=== PATIENT | male | born 1950 | race Caucasian/White ===

== ENCOUNTER 2017-03-12 05:33 | Day surgery (SDC) | payer MEDICARE, BC ==
[2017-03-12] MEDS ORDERED: Dextrose 5%-0.45% NaCl 1,000 ML IV SCH (06:00)
[2017-03-12] MEDS ORDERED: Sodium Chloride 0.9% 10 ML Syringe FLUSH PRN (06:00)
[2017-03-12 06:07] VITALS: BP 140/76
--- NOTE | 2017-03-12 07:15 | OR ---
{null, DATE: 03/12/2017 PROCEDURES: Flexible sigmoidoscopy, NBI, and multiple pinch biopsies. INSTRUMENT USED: CF-H180AL Olympus video colonoscope. PREMEDICATIONS: None. INDICATION: The patient with previous polypectomy, rectal sessile polyp removed, followup endoscopic evaluation is done for detection of any residual tissue and removal, endoscopic hemostasis therapy if needed. DESCRIPTION OF PROCEDURE: Initial rectal exam was unremarkable. Rigid anoscopy was normal. The colonoscope was passed with ease up to the area of distal transverse colon. No bleeding was noted from any of the visualized areas at the commencement of the examination. No stricture. No vascular ectasia. No large isolated ulcerations seen. No evidence of diffuse inflammatory bowel disease in the form of friability, contact bleeding, or ulcerations. Diffuse scattered diverticula were noted in the proximal rectal area. Prominent benign fold was noted, NBI views were taken, photographs were obtained, multiple pinch biopsies were obtained and sent for histopathology. No bleeding was noted from any of the visualized areas at the completion of examination. IMPRESSION: Diverticulosis. The patient tolerated the procedure well. [facility] /[id number] }
== END 2017-03-12 07:00 | disposition home or self-care (01) ==
LOC: DL.SDS 05:33
PROVIDERS: ATTEND Internal Medicine Gastroenterology
DX: K57.30 Diverticulosis of large intestine without perforation or abscess without bleeding (principal); Z86.010 Personal history of colon polyps; Z98.890 Other specified postprocedural states
CPT/HCPCS: 88305

== ENCOUNTER 2017-05-11 19:54 | Emergency (ER) | payer MEDICARE, BC ==
[2017-05-11 21:15] VITALS: BP 155/102
--- NOTE | 2017-05-11 21:52 | EDM.PDOC ---
ED HPI GENERAL MEDICAL PROBLEM - General Chief Complaint: Respiratory Problem Stated Complaint: HARD TO BREATH, FLUIDS Time Seen by Provider: 05/11/17 21:20 Source of Information: Reports: Patient History Limitations: Reports: No Limitations - History of Present Illness INITIAL COMMENTS - FREE TEXT/NARRATIVE: ED with complaint of increased swelling in legs over past week and noting getting harder to breath. No chest pain. Admits while caring for ill , lost 30 # and in past week since her he has gained 10#. ASdmits some likely due to better eating habits. Notes feeling anxious as would have told him what to do in this situation. Has suprapubic cath from complications of prostate Cancer. Normally wears guillermo hose - Related Data Allergies Allergy/AdvReac Type Severity Reaction Status Date / Time No Known Allergies Allergy Verified 03/12/17 06:00 Home Meds: Home Meds Warfarin [Coumadin] 1 tab PO ASDIRECTED 03/05/14 [History] Metoprolol Succinate [Toprol XL] 1 tab PO DAILY 10/29/14 [History] Acetaminophen [Tylenol] 2 tab PO ASDIRECTED 06/11/16 [History] Calcium Carbonate/Vitamin D3 [Calcium 600 + Vit D Tablet] 2 tab PO ASDIRECTED [History] Diltiazem HCl [Cartia Xt] 2 tab PO BID 06/11/16 [History] Latanoprost [Xalatan 0.005% Ophth Soln] 1 drop EYEBOTH DAILY 06/11/16 [History] Multivitamin [Multivitamins] 1 tab PO DAILY 06/11/16 [History] Phenazopyridine HCl [Pyridium] 1 tab PO TID PRN 06/11/16 [History] Sildenafil Citrate [Viagra] 100 mg PO ASDIRECTED PRN 06/11/16 [History] Timolol Maleate [Timoptic 0.5% Ophth Soln] 1 drop EYEBOTH BID 06/11/16 [History] Betamethasone/Propylene Glyc [Diprolene 0.05%] 1 applic TOP ASDIRECTED 03/11/17 [History] Furosemide [Furosemide] 2 tab PO DAILY 03/11/17 [History] Miconazole Nitrate [Miconazorb AF] 1 applic TOP ASDIRECTED 03/11/17 [History] Past Medical History HEENT History: Reports: Glaucoma Cardiovascular History: Reports: Afib Respiratory History: Reports: None, Sleep Apnea Gastrointestinal History: Reports: None Genitourinary History: Reports: Prostate Disorder, Renal Calculus, Other (See Below) Other Genitourinary History: BLADDER DIVERTICULUM. URETHRAL STRICTURE. CHRONIC RETENTION OF URINE. SUPRAPUBIC CATHETAR Musculoskeletal History: Reports: Arthritis, Other (See Below) Other Musculoskeletal History: DEGENERATIVE DISC DISEASE Neurological History: Reports: None Psychiatric History: Reports: None Endocrine/Metabolic History: Reports: Obesity/BMI 30+ Hematologic History: Reports: None Immunologic History: Reports: None, Other (See Below) Other Immunologic History: HX OF SCARLATINA Oncologic (Cancer) History: Reports: Prostate, Other (See Below) Other Oncologic History: SKIN CA Dermatologic History: Reports: None - Infectious Disease History Infectious Disease History: Reports: Chicken Pox, Measles, Mumps, Other (See Below) Other Infectious Disease History: SCARLETINA - Past Surgical History HEENT Surgical History: Reports: None Cardiovascular Surgical History: Reports: Other (See Below) Other Cardiovascular Surgeries/Procedures: ANGIOGRAM. ECHO. ELECTROCARDIOGRAM Respiratory Surgical History: Reports: None GI Surgical History: Reports: Appendectomy, Hernia Repair/Other Female Surgical History: Reports: Suprapubic Catheter Placement Male Surgical History: Reports: Prostatectomy, Other (See Below) Other Male Surgeries/Procedures: PROSTATE CA SURG WITH RADIATION. BLADDER NECK DILTATION. CHANGE OF BLADDER TUBE CMPLX. CYSTOSCOPY Musculoskeletal Surgical History: Reports: Joint Replacement, Other (See Below) Other Musculoskeletal Surgeries/Procedures:: L) KNEE SURG Social & Family History - Family History Family Medical History: Noncontributory - Tobacco Use Smoking Status *Q: Never Smoker Years of Tobacco use: 20 Second Hand Smoke Exposure: No - Caffeine Use Caffeine Use: Reports: Coffee Other Caffeine Use: 2 cups every other day. pop weekly - Alcohol Use Days Per Week of Alcohol Use: 0 - Recreational Drug Use Recreational Drug Use: No - Living Situation & Occupation Living situation: Reports: Occupation: Employed ED ROS GENERAL - Review of Systems Review Of Systems: See Below Constitutional: Reports: Weight Gain. Denies: Fever, Chills, Malaise HEENT: Reports: No Symptoms Respiratory: Reports: Shortness of Breath. Denies: Cough Cardiovascular: Reports: Edema. Denies: Chest Pain, Orthopnea Endocrine: Reports: No Symptoms GI/Abdominal: Reports: No Symptoms : Reports: No Symptoms Musculoskeletal: Reports: No Symptoms Skin: Reports: No Symptoms Neurological: Reports: No Symptoms Psychiatric: Reports: No Symptoms ED EXAM, GENERAL - Physical Exam Exam: See Below Exam Limited By: No Limitations General Appearance: Alert, Anxious, Mild Distress Ears: Normal External Exam, Normal TMs Nose: Normal Inspection Throat/Mouth: Normal Inspection Head: Atraumatic, Normocephalic Neck: Normal Inspection, Supple Respiratory/Chest: No Respiratory Distress, Lungs Clear Cardiovascular: Normal Peripheral Pulses, Irregularly Irregular GI/Abdominal: Normal Bowel Sounds Back Exam: Normal Inspection Extremities: Pedal Edema (2+to knees) Neurological: Alert, Oriented, Normal Cognition Psychiatric: Normal Affect, Normal Mood, Anxious (mild) Skin Exam: Warm, Dry, Intact, Normal Color Course - Vital Signs Last Recorded V/S: Last Vital Signs Temp 97.7 F 05/11/17 21:14 Pulse 84 05/11/17 21:14 Resp 20 05/11/17 21:14 BP 155/102 H 05/11/17 21:14 Pulse Ox 97 05/11/17 21:14 - Orders/Labs/Meds Labs: Laboratory Tests 05/11/17 05/11/17 05/11/17 Range/Units 21:33 21:33 21:33 WBC 9.2 (5.0-10.0) 10^3/uL RBC 5.22 (4.6-6.2) 10^6/uL Hgb 15.1 (14.0-18.0) g/dL Hct 46.8 (40.0-54.0) % MCV 89.7 (80-100) fL MCH 28.9 (27.0-34.0) pg MCHC 32.3 L (33.0-35.0) g/dL Plt Count 176 (150-450) 10^3/uL Neut % (Auto) 85.8 H (42.2-75.2) % Lymph % (Auto) 6.0 L (20.5-50.1) % [place] % (Auto) 6.2 (2-8) % Eos % (Auto) 1.8 (1.0-3.0) % Baso % (Auto) 0.2 (0.0-1.0) % Sodium 142 (135-145) mmol/L Potassium 3.9 (3.6-5.0) mmol/L Chloride 104 (101-111) mmol/L Carbon Dioxide 28.0 (21.0-31.0) mmol/L Anion Gap 13.9 BUN 22 H (7-18) mg/dL Creatinine 1.1 (0.6-1.3) mg/dL Est Cr Clr Drug Dosing 72.64 mL/min Estimated GFR (MDRD) > 60 BUN/Creatinine Ratio 20.00 Glucose 114 H (74-105) mg/dL Calcium 8.7 (8.4-10.2) mg/dl Total Bilirubin 1.0 (0.2-1.0) mg/dL AST 25 (10-42) IU/L ALT 24 (10-60) IU/L Alkaline Phosphatase 64 (42-121) IU/L CK-MB (CK-2) 1.10 (0.4-4.7) ng/mL Troponin I < 0.02 (0.00-0.02) ng/ml B-Natriuretic Peptide 124 H (0-100) pg/ml Total Protein 7.0 (6.7-8.2) g/dl Albumin 3.6 (3.2-5.5) g/dl Globulin 3.4 Albumin/Globulin Ratio 1.06 - Radiology Interpretation Free Text/Narrative:: CXR: cardiac silhouette, upper limits of normal size.Mild lower lobe atelectasis Departure - Departure Time of Disposition: 23:07 Disposition: Home, Self-Care 01 Condition: Fair Clinical Impression: Lower extremity edema - Discharge Information Instructions: Shortness of Breath, [id number] Forms: ED Department Discharge Additional Instructions: additioanl 20mg Lasix tonight elevate lower extremities Guillermo Manriquez Follow up PCP 1-2 days Limit sodium intake
[2017-05-11 22:07] LABS: CHLORIDE,CL 104 mmol/L (101-111); SODIUM,NA 142 mmol/L (135-145)
--- NOTE | 2017-05-12 19:24 | EKG ---
05/11/2017 - CARLOS PRICE - Cristin reviewed the EKG and agree with the machine's reading. [facility] /[id number]
== END 2017-05-11 23:23 | disposition home or self-care (01) ==
LOC: DL.ED 19:54
DX: R60.0 Localized edema (principal); I48.91 Unspecified atrial fibrillation; E66.9 Obesity, unspecified; Z98.890 Other specified postprocedural states; Z79.899 Other long term (current) drug therapy; M19.90 Unspecified osteoarthritis, unspecified site; Z85.828 Personal history of other malignant neoplasm of skin; Z85.46 Personal history of malignant neoplasm of prostate; Z90.49 Acquired absence of other specified parts of digestive tract; Z87.442 Personal history of urinary calculi; R06.02 Shortness of breath
CPT/HCPCS: 36415; 71010; 80053; 82553; 83880; 84484; 85025; 99285

== ENCOUNTER 2019-01-28 07:15 | Emergency (ER) | payer MEDICARE, BC ==
--- NOTE | 2019-01-28 07:40 | EDM.PDOC ---
ED HPI GENERAL MEDICAL PROBLEM - General Chief Complaint: General Stated Complaint: TOE IN PAIN,HYDRATED? [id number] Time Seen by Provider: 01/28/19 07:40 Source of Information: Reports: Patient, RN, RN Notes Reviewed History Limitations: Reports: No Limitations - History of Present Illness INITIAL COMMENTS - FREE TEXT/NARRATIVE: Pt to ER with c/o additional swelling in the lower legs, SOB, and severe pain in the right great toe. He states the pain began to get worse during the night. He states he stubbed the toe about 1 month ago, but has not had any pain until now. Patient states he takes Lasix in the morning and in the evening. He states he has had less urine output and more swelling in the lower extremities. Patient has a suprapubic catheter due to prostate cancer/surgery. Pt admits to hx of atrial fibrillation. Denies chest pains. Onset: Gradual Duration: Constant, Getting Worse Location: Reports: Lower Extremity, Left, Lower Extremity, Right Severity: Moderate - Related Data Allergies Allergy/AdvReac Type Severity Reaction Status Date / Time No Known Allergies Allergy Verified 01/28/19 07:24 Home Meds: Home Meds Warfarin [Coumadin] 5 mg PO DAILY 03/05/14 [History] Metoprolol Succinate [Toprol XL] 100 mg PO BEDTIME 10/29/14 [History] Acetaminophen [Tylenol] 2 tab PO ASDIRECTED 06/11/16 [History] Calcium Carbonate/Vitamin D3 [Calcium 600 + Vit D Tablet] 2 tab PO ASDIRECTED [History] Diltiazem HCl [Cartia Xt] 360 mg PO BEDTIME 06/11/16 [History] Latanoprost [Xalatan 0.005% Ophth Soln] 1 drop EYEBOTH DAILY 06/11/16 [History] Multivitamin [Multivitamins] 1 tab PO DAILY 06/11/16 [History] Phenazopyridine HCl [Pyridium] 1 tab PO TID PRN 06/11/16 [History] Timolol Maleate [Timoptic 0.5% Ophth Soln] 1 drop EYEBOTH BID 06/11/16 [History] Betamethasone/Propylene Glyc [Diprolene 0.05%] 1 applic TOP ASDIRECTED 03/11/17 [History] Furosemide 1 tab PO ASDIRECTED 03/11/17 [History] Miconazole Nitrate [Miconazorb AF] 1 applic TOP ASDIRECTED PRN 03/11/17 [History ] Docusate Sodium 100 mg PO DAILY 11/22/18 [History] Oxybutynin Chloride [Ditropan Xl] 15 mg PO BID 11/22/18 [History] Past Medical History HEENT History: Reports: Glaucoma Cardiovascular History: Reports: Afib, Hypertension Respiratory History: Reports: Sleep Apnea Gastrointestinal History: Reports: Colon Polyp Genitourinary History: Reports: Prostate Disorder, Renal Calculus, Other (See Below) Other Genitourinary History: BLADDER DIVERTICULUM. URETHRAL STRICTURE. CHRONIC RETENTION OF URINE. SUPRAPUBIC CATHETAR Musculoskeletal History: Reports: Arthritis, Other (See Below) Other Musculoskeletal History: DEGENERATIVE DISC DISEASE Neurological History: Reports: None Psychiatric History: Reports: None Endocrine/Metabolic History: Reports: Obesity/BMI 30+ Hematologic History: Reports: None Immunologic History: Reports: Other (See Below) Other Immunologic History: HX OF SCARLATINA Oncologic (Cancer) History: Reports: Prostate, Other (See Below) Other Oncologic History: SKIN CA Dermatologic History: Reports: None - Infectious Disease History Infectious Disease History: Reports: Chicken Pox, Measles, Mumps, Other (See Below) Other Infectious Disease History: SCARLETINA - Past Surgical History Female Surgical History: Social & Family History - Family History Family Medical History: Noncontributory - Caffeine Use Caffeine Use: Reports: Coffee, Soda Other Caffeine Use: 3 cups every other day. pop weekly - Living Situation & Occupation Living situation: Reports: Occupation: Employed ED ROS GENERAL - Review of Systems Review Of Systems: ROS reveals no pertinent complaints other than HPI. ED EXAM, GENERAL - Physical Exam Exam: See Below Exam Limited By: No Limitations General Appearance: Alert, WD/WN, No Apparent Distress Eye Exam: Bilateral Eye: EOMI, Normal Inspection Ears: Normal External Exam, Hearing Grossly Normal Nose: Normal Inspection Throat/Mouth: Normal Inspection, Normal Voice, No Airway Compromise Head: Atraumatic, Normocephalic Neck: Normal Inspection, Supple, Non-Tender, Full Range of Motion Respiratory/Chest: No Respiratory Distress, No Accessory Muscle Use, Chest Non- Tender, Decreased Breath Sounds, Rales Cardiovascular: Normal Peripheral Pulses, Irregularly Irregular Peripheral Pulses: 1+: Dorsalis Pedis (L), Dorsalis Pedis (R), 2+: Radial (L), Radial (R) GI/Abdominal: Normal Bowel Sounds, Soft, Non-Tender, Distended (Male) Exam: Deferred Rectal (Males) Exam: Deferred Back Exam: Normal Inspection, Decreased Range of Motion Extremities: Pedal Edema, Limited Range of Motion (right great toe) Neurological: Alert, Oriented, CN II-XII Intact, Normal Cognition Psychiatric: Normal Affect, Normal Mood Skin Exam: Warm, Dry, Intact, Normal Color, No Rash Lymphatic: No Adenopathy Course - Vital Signs Last Recorded V/S: Last Vital Signs Temp 97.3 F 01/28/19 07:21 Pulse 73 01/28/19 07:21 Resp 20 01/28/19 07:21 BP 104/63 01/28/19 07:21 Pulse Ox 97 01/28/19 07:21 - Orders/Labs/Meds Orders: Active Orders 24 hr Category Date Time Status Furosemide [Lasix] Med 01/28/19 08:52 Once 80 mg IM NOW ONE Labs: Laboratory Tests 01/28/19 01/28/19 01/28/19 Range/Units 08:00 08:00 08:00 WBC 8.2 (5.0-10.0) 10^3/uL RBC 5.41 (4.6-6.2) 10^6/uL Hgb 15.3 (14.0-18.0) g/dL Hct 46.9 (40.0-54.0) % MCV 86.7 D (80-100) fL MCH 28.3 (27.0-34.0) pg MCHC 32.6 L (33.0-35.0) g/dL Plt Count 186 (150-450) 10^3/uL Neut % (Auto) 76.6 H (42.2-75.2) % Lymph % (Auto) 13.7 L (20.5-50.1) % Real % (Auto) 7.6 (2-8) % Eos % (Auto) 1.7 (1.0-3.0) % Baso % (Auto) 0.4 (0.0-1.0) % PT 20.5 H (9.0-12.0) SEC INR 2.1 H (0.9-1.2) Sodium 138 (135-145) mmol/L Potassium 3.8 (3.6-5.0) mmol/L Chloride 105 (101-111) mmol/L Carbon Dioxide 24.0 (21.0-31.0) mmol/L Anion Gap 12.8 BUN 21 H (7-18) mg/dL Creatinine 1.1 (0.6-1.3) mg/dL Est Cr Clr Drug Dosing 69.57 mL/min Estimated GFR (MDRD) > 60 BUN/Creatinine Ratio 19.09 Glucose 118 H (74-105) mg/dL Uric Acid 9.6 H (2.6-7.2) mg/dL Calcium 8.6 (8.4-10.2) mg/dl Total Bilirubin 0.9 (0.2-1.0) mg/dL AST 29 (10-42) IU/L ALT 23 (10-60) IU/L Alkaline Phosphatase 70 (42-121) IU/L B-Natriuretic Peptide 95 (0-100) pg/ml Total Protein 7.2 (6.7-8.2) g/dl Albumin 3.4 (3.2-5.5) g/dl Globulin 3.8 Albumin/Globulin Ratio 0.89 Meds: Medications Discontinued Medications Generic Name Dose Route Start Last Admin Trade Name Freq PRN Reason Stop Dose Admin Furosemide 80 mg 01/28/19 08:45 Lasix IVPUSH 01/28/19 08:46 NOW ONE - Radiology Interpretation Free Text/Narrative:: Chest xray: FINDINGS: Lungs: Unremarkable. No consolidation. Pleural space: Unremarkable. No pleural effusion. No pneumothorax. Heart/Mediastinum: Unremarkable. No cardiomegaly. Bones/joints: Unremarkable. IMPRESSION: No acute findings. Thank you for allowing us to participate in the care of your patient. Dictated and Authenticated by: Alvarado Victoria MD 01/28/2019 8:34 AM Central Time ([place] & [place]) Right great toe xray: FINDINGS: Bones/joints: Normal. Soft tissues: Normal. IMPRESSION: No acute findings. Thank you for allowing us to participate in the care of your patient. Dictated and Authenticated by: Alvarado Victoria MD 01/28/2019 8:34 AM Central Time ([place] & [place]) See rad report Departure - Departure Time of Disposition: 08:53 Disposition: Home, Self-Care 01 Condition: Fair Clinical Impression: Lower extremity edema Gout Qualifiers: Gout site: toe Gout etiology: unspecified cause Chronicity: acute Laterality: right Qualified Code(s): M10.9 - Gout, unspecified - Discharge Information *PRESCRIPTION DRUG MONITORING PROGRAM REVIEWED*: No *COPY OF PRESCRIPTION DRUG MONITORING REPORT IN PATIENT SERGEI: No Instructions: Gout, [id number], Edema, [id number] Forms: ED Department Discharge Additional Instructions: RX: Colchicine, Prednisone Drink plenty of water Follow up with your primary care facility - My Orders Last 24 Hours: My Active Orders 01/28/19 08:52 Furosemide [Lasix] 80 mg IM NOW ONE - Assessment/Plan Last 24 Hours: My Active Orders 01/28/19 08:52 Furosemide [Lasix] 80 mg IM NOW ONE
[2019-01-28 07:49] VITALS: BP 104/63
[2019-01-28 08:29] LABS: ANION GAP 12.8; CHLORIDE,CL 105 mmol/L (101-111); SODIUM,NA 138 mmol/L (135-145)
[2019-01-28] MEDS ORDERED: Furosemide 40 MG/4 ML VIAL IVPUSH ONE (08:45)
[2019-01-28] MEDS ORDERED: Furosemide 40 MG/4 ML VIAL IM ONE (08:52)
== END 2019-01-28 09:21 | disposition home or self-care (01) ==
LOC: DL.ED 07:15
DX: M10.9 Gout, unspecified (principal); I10 Essential (primary) hypertension; I48.91 Unspecified atrial fibrillation; Z79.899 Other long term (current) drug therapy; Z79.01 Long term (current) use of anticoagulants
CPT/HCPCS: 36415; 71046; 73660; 80053; 83880; 84550; 85025; 85610; 96372; 99283; J1940

== ENCOUNTER 2019-11-23 05:20 | Day surgery (SDC) | payer MEDICARE, BC ==
[2019-11-23] MEDS ORDERED: fentaNYL 100 MCG/2 ML SDV IV ONE ×3 (05:21→06:31)
[2019-11-23] MEDS ORDERED: Midazolam 1 MG/ML 2 ML SDV IV ONE ×5 (05:21→06:35)
[2019-11-23] MEDS ORDERED: Dextrose 5%-0.45% NaCl 1,000 ML IV SCH (06:00)
[2019-11-23] MEDS ORDERED: Sodium Chloride 0.9% 10 ML Syringe FLUSH PRN (06:00)
[2019-11-23] MEDS ORDERED: Midazolam 1 MG/ML 2 ML SDV ONE (06:15)
[2019-11-23] MEDS ORDERED: fentaNYL 100 MCG/2 ML SDV ONE (06:16)
[2019-11-23 08:55] VITALS: BP 113/77; PULSE 80
--- NOTE | 2019-11-23 09:21 | OR ---
DATE: 11/23/2019 PROCEDURES: Total colonoscopy, narrow-band imaging, and cold snare polypectomy. INSTRUMENT USED: CF-QL302T Olympus video colonoscope. PREMEDICATIONS: Fentanyl 100 mcg intravenous, Versed 3 mg intravenous, nasal O2 cannula. Procedure was done under pulse oximetry, BP recording, and quality assurance monitor body. INDICATION: The patient with previous colonic polyp removal. Followup colonoscopic examination is done for detection of any polypoid lesions, any residual polyp tissue if detected to be removed, endoscopic hemostasis therapy if needed. DESCRIPTION OF PROCEDURE: Initial rectal exam was unremarkable. Rigid anoscopy showed small internal hemorrhoids without bleeding from them. The colonoscope was passed with ease up to the ileocecal area. Photographs were taken of the normal-appearing cecum identified by landmarks of appendiceal orifice and double bulged ileocecal folds. No bleeding was noted from any of the visualized areas at the commencement of the examination. The bowel preparation was found to be adequate, [place] score 2 in right and transverse colon, 3 in descending colon, total score 7. No stricture. No vascular ectasia. No large isolated ulcerations seen. No evidence of diffuse inflammatory bowel disease in the form of friability, contact bleeding, or ulcerations. Probing the proximal sides of folds and flexures using adequate distention and clearing up the stool material, withdrawal of the scope was made. In the hepatic flexure area, diminutive benign-appearing polyp was noted, NBI views were obtained, photographs were taken, cold snare polypectomy was done, the tissue was retrieved and sent for histopathology. No bleeding was noted from any of the visualized areas at the completion of examination. IMPRESSION: 1. Internal hemorrhoids. 2. Colonic polyp. The patient tolerated the procedure well. [facility] /[id number]
== END 2019-11-23 09:00 | disposition home or self-care (01) ==
LOC: DL.ENDO 05:20
PROVIDERS: ATTEND Internal Medicine Gastroenterology
DX: Z12.11 Encounter for screening for malignant neoplasm of colon (principal); D12.3 Benign neoplasm of transverse colon; K64.8 Other hemorrhoids; Z86.010 Personal history of colon polyps
CPT/HCPCS: 45385; J2250; J3010; J7042; 88305

== ENCOUNTER 2020-06-18 21:20 | Inpatient (IN) | payer MEDICARE, BC, OTHER ==
--- NOTE | 2020-06-18 21:43 | EDM.PDOC ---
ED HPI GENERAL MEDICAL PROBLEM - General Chief Complaint: Respiratory Problem Stated Complaint: CHESTPAIN,RIGHTSIDE,SOB,RESPATORYISSUES,[id number] Time Seen by Provider: 06/18/20 21:43 Source of Information: Reports: Patient, RN, RN Notes Reviewed History Limitations: Reports: No Limitations - History of Present Illness INITIAL COMMENTS - FREE TEXT/NARRATIVE: Patient presents to ER with complaint of shortness of breath, right-sided chest pain. Patient states he began feeling somewhat short of breath yesterday, the chest pain to the right side of the chest has been been gradually getting worse. Patient states today he has had a couple of loose stools but also takes stool softeners, and states he has felt somewhat nauseated. Patient states he feels winded and as if he needs oxygen. Patient admits to history of atrial fib, on anticoagulation. Admits to history of prostate cancer. Admits to chills, unsure if he has had a fever. Onset: Gradual - Related Data Allergies Allergy/AdvReac Type Severity Reaction Status Date / Time No Known Allergies Allergy Verified 06/18/20 21:51 Home Meds: Home Meds Metoprolol Succinate [Toprol XL] 100 mg PO BEDTIME 10/29/14 [History] Acetaminophen [Tylenol] 650 mg PO ASDIRECTED PRN 06/11/16 [History] Calcium Carbonate/Vitamin D3 [Calcium 600 + Vit D Tablet] 2 tab PO ASDIRECTED 06/11/16 [History] Latanoprost [Xalatan 0.005% Ophth Soln] 1 drop EYEBOTH DAILY 06/11/16 [History] Multivitamin [Multivitamins] 1 tab PO DAILY 06/11/16 [History] Timolol Maleate [Timoptic 0.5% Ophth Soln] 1 drop EYEBOTH BID 06/11/16 [History] dilTIAZem HCL [Cartia Xt] 360 mg PO DAILY 06/11/16 [History] Betamethasone/Propylene Glyc [Diprolene 0.05%] 1 applic TOP ASDIRECTED 03/11/17 [History] Furosemide 40 mg PO BID 03/11/17 [History] Miconazole Nitrate [Miconazorb AF] 1 applic TOP BID PRN 03/11/17 [History] Docusate Sodium 100 mg PO DAILY 11/22/18 [History] Cyclobenzaprine [Flexeril] 5 mg PO Q8HR PRN 10/31/19 [History] Hydrocodone/Acetaminophen [[place] 5-325 Tablet] 5 - 325 mg PO Q8H PRN 10/31/19 [History] Sertraline [Zoloft] 50 mg PO DAILY 10/31/19 [History] Warfarin Sodium [Jantoven] 5 mg PO ASDIRECTED 10/31/19 [History] allopurinoL [Zyloprim] 300 mg PO DAILY 10/31/19 [History] polyethylene glycoL 3350 [MiraLAX] 1 packet PO ASDIRECTED PRN 10/31/19 [History] Past Medical History HEENT History: Reports: Glaucoma Other HEENT History: cyst roof of mouth Cardiovascular History: Reports: Afib, Hypertension Respiratory History: Reports: Sleep Apnea Gastrointestinal History: Reports: Colon Polyp Genitourinary History: Reports: Prostate Disorder, Renal Calculus, Other (See Below) Other Genitourinary History: BLADDER DIVERTICULUM. URETHRAL STRICTURE. CHRONIC RETENTION OF URINE. SUPRAPUBIC CATHETAR. BLADDER SPASMS Musculoskeletal History: Reports: Arthritis, Other (See Below) Other Musculoskeletal History: DEGENERATIVE DISC DISEASE. BLADDER SPASMS Neurological History: Reports: None Psychiatric History: Reports: None Endocrine/Metabolic History: Reports: Obesity/BMI 30+ Hematologic History: Reports: None Immunologic History: Reports: Other (See Below) Other Immunologic History: HX OF SCAR[place]ATINA Oncologic (Cancer) History: Reports: Prostate, Other (See Below) Other Oncologic History: SKIN CA Dermatologic History: Reports: None - Infectious Disease History Infectious Disease History: Reports: Chicken Pox, Measles, Mumps, Other (See Below) Other Infectious Disease History: SCARLETINA - Past Surgical History Head Surgeries/Procedures: Reports: None HEENT Surgical History: Reports: Eye Surgery Other HEENT Surgeries/Procedures: surg opn torn retina Cardiovascular Surgical History: Reports: Other (See Below) Other Cardiovascular Surgeries/Procedures: ANGIOGRAM. ECHO. ELECTROCARDIOGRAM Respiratory Surgical History: Reports: None GI Surgical History: Reports: Appendectomy, Colonoscopy, Hernia Repair/Other, Polypectomy Male Surgical History: Reports: Suprapubic Catheter Placement Other Male Surgeries/Procedures: PROSTATE CA SURG WITH RADIATION. BLADDER NECK DILTATION. CHANGE OF BLADDER TUBE CMPLX. CYSTOSCOPY Endocrine Surgical History: Reports: None Neurological Surgical History: Reports: None Musculoskeletal Surgical History: Reports: Joint Replacement, Other (See Below) Other Musculoskeletal Surgeries/Procedures:: L) KNEE SURG Oncologic Surgical History: Reports: Other (See Below) Other Oncologic Surgeries/Procedures: S/P PROSTRATE CA SURGERY & RADIATION Dermatological Surgical History: Reports: Skin Biopsy Social & Family History - Family History Family Medical History: Noncontributory - Caffeine Use Caffeine Use: Reports: Coffee, Soda Other Caffeine Use: 3 cups every other day. pop weekly - Living Situation & Occupation Living situation: Reports: Occupation: Employed ED ROS GENERAL - Review of Systems Review Of Systems: Comprehensive ROS is negative, except as noted in HPI. ED EXAM, GENERAL - Physical Exam Exam: See Below Exam Limited By: No Limitations General Appearance: Alert, WD/WN, Mild Distress Eye Exam: Bilateral Eye: EOMI, Normal Inspection Ears: Normal External Exam, Hearing Grossly Normal Nose: Normal Inspection Throat/Mouth: Normal Inspection, Normal Voice, No Airway Compromise Head: Atraumatic, Normocephalic Neck: Normal Inspection, Supple, Non-Tender, Full Range of Motion Respiratory/Chest: Decreased Breath Sounds, Crackles (bases) Cardiovascular: Normal Peripheral Pulses, No Gallop, No JVD, No Murmur, No Rub, Irregularly Irregular Peripheral Pulses: 2+: Radial (L), Radial (R) GI/Abdominal: Normal Bowel Sounds, Soft, Non-Tender (Male) Exam: Deferred Rectal (Males) Exam: Deferred Back Exam: Normal Inspection, Full Range of Motion, NT Extremities: Limited Range of Motion (uses cane, wheelchair) Neurological: Alert, Oriented, CN II-XII Intact, Normal Cognition, Normal Reflexes, No Motor/Sensory Deficits Psychiatric: Normal Affect, Normal Mood Skin Exam: Warm, Dry, Intact, Normal Color, No Rash Lymphatic: No Adenopathy Course - Vital Signs Last Recorded V/S: Last Vital Signs Temp 97.4 F 06/18/20 21:41 Pulse 109 H 06/18/20 21:41 Resp 22 H 06/18/20 21:41 BP 109/82 06/18/20 21:41 Pulse Ox 96 06/18/20 21:41 - Orders/Labs/Meds Orders: Active Orders 24 hr Category Date Time Status Admission Diagnosis [ADT] Stat ADT 06/18/20 22:37 Ordered Patient Status [ADT] Routine ADT 06/18/20 22:37 Active EKG Documentation Completion [RC] STAT Care 06/18/20 21:25 Active CULTURE BLOOD [BC] Stat Lab 06/18/20 21:25 Ordered CULTURE BLOOD [BC] Stat Lab 06/18/20 21:35 Received UA RFX NANCY AND CULT IF INDIC [URIN] Stat Lab 06/18/20 21:24 Ordered cefTRIAXone [Rocephin] 1 gm Med 06/18/20 22:38 Active Sodium Chloride 0.9% [Normal Saline] 50 ml IV ONETIME Blood Culture x2 Reflex Set [OM.PC] Stat Oth 06/18/20 21:25 Ordered Medication Orders Ceftriaxone Sodium 1 gm/ (Sodium Chloride) 50 mls @ 100 mls/hr IV ONETIME ONE Stop: 06/18/20 23:07 Labs: Laboratory Tests 06/18/20 06/18/20 06/18/20 Range/Units 21:35 21:35 21:35 WBC 18.6 H (5.0-10.0) 10^3/uL RBC 5.84 (4.6-6.2) 10^6/uL Hgb 16.6 D (14.0-18.0) g/dL Hct 50.9 (40.0-54.0) % MCV 87.2 (80-100) fL MCH 28.4 (27.0-34.0) pg MCHC 32.6 L (33.0-35.0) g/dL Plt Count 186 (150-450) 10^3/uL Neut % (Auto) 89.6 H (42.2-75.2) % Lymph % (Auto) 4.9 L (20.5-50.1) % [place] % (Auto) 5.2 (2-8) % Eos % (Auto) 0.1 L (1.0-3.0) % Baso % (Auto) 0.2 (0.0-1.0) % D-Dimer, Quantitative 121 (0-400) ng/mL Sodium 139 (136-145) mmol/L Potassium 4.2 (3.5-5.1) mmol/L Chloride 100 (98-107) mmol/L Carbon Dioxide 31 (21-32) mmol/L Anion Gap 12.2 (7-13) mEq/L BUN 18 (7-18) mg/dL Creatinine 1.36 H (0.70-1.30) mg/dL Est Cr Clr Drug Dosing 56.30 mL/min Estimated GFR (MDRD) 52 BUN/Creatinine Ratio 13.2 (No establ ref range) Glucose 123 H (74-99) mg/dL Lactic Acid (0.4-2.0) mmol/L Calcium 8.9 (8.5-10.1) mg/dL Total Bilirubin 1.0 (0.2-1.0) mg/dL AST 20 (15-37) U/L ALT 26 (16-63) U/L Alkaline Phosphatase 100 (46-116) U/L Troponin I < 0.017 (0.000-0.056) ng/mL C-Reactive Protein 5.1 H (0.0-0.9) mg/dL B-Natriuretic Peptide 99 (0-100) pg/ml Total Protein 8.5 H (6.4-8.2) g/dL Albumin 3.6 (3.4-5.0) g/dL Globulin 4.9 Albumin/Globulin Ratio 0.7 COVID-19 ([place]) (NEGATIVE) 06/18/20 06/18/20 Range/Units 21:35 21:38 WBC (5.0-10.0) 10^3/uL RBC (4.6-6.2) 10^6/uL Hgb (14.0-18.0) g/dL Hct (40.0-54.0) % MCV (80-100) fL MCH (27.0-34.0) pg MCHC (33.0-35.0) g/dL Plt Count (150-450) 10^3/uL Neut % (Auto) (42.2-75.2) % Lymph % (Auto) (20.5-50.1) % [place] % (Auto) (2-8) % Eos % (Auto) (1.0-3.0) % Baso % (Auto) (0.0-1.0) % D-Dimer, Quantitative (0-400) ng/mL Sodium (136-145) mmol/L Potassium (3.5-5.1) mmol/L Chloride (98-107) mmol/L Carbon Dioxide (21-32) mmol/L Anion Gap (7-13) mEq/L BUN (7-18) mg/dL Creatinine (0.70-1.30) mg/dL Est Cr Clr Drug Dosing mL/min Estimated GFR (MDRD) BUN/Creatinine Ratio (No establ ref range) Glucose (74-99) mg/dL Lactic Acid 1.8 (0.4-2.0) mmol/L Calcium (8.5-10.1) mg/dL Total Bilirubin (0.2-1.0) mg/dL AST (15-37) U/L ALT (16-63) U/L Alkaline Phosphatase (46-116) U/L Troponin I (0.000-0.056) ng/mL C-Reactive Protein (0.0-0.9) mg/dL B-Natriuretic Peptide (0-100) pg/ml Total Protein (6.4-8.2) g/dL Albumin (3.4-5.0) g/dL Globulin Albumin/Globulin Ratio COVID-19 ([place]) Negative (NEGATIVE) Meds: Medications Generic Name Dose Route Start Last Admin Trade Name Freq PRN Reason Stop Dose Admin Ceftriaxone Sodium 1 gm/ 50 mls @ 100 mls/hr 06/18/20 22:38 Sodium Chloride IV 06/18/20 23:07 ONETIME ONE - Radiology Interpretation Free Text/Narrative:: Chest xray: PROCEDURE INFORMATION: Exam: XR Chest, 1 View Exam date and time: 06/18/2020 10:12 PM Age: 70 years old Clinical indication: Right-sided chest pain TECHNIQUE: Imaging protocol: XR of the chest Views: 1 view. COMPARISON: CR Chest 2V 01/28/2019 8:06 AM FINDINGS: Lungs: There is now mild vascular congestion Pleural space: Unremarkable. No pleural effusion. No pneumothorax. Heart/Mediastinum: There is cardiomegaly Bones/joints: Unremarkable. IMPRESSION: Cardiomegaly with mild vascular congestion Thank you for allowing us to participate in the care of your patient. Dictated and Authenticated by: James Dickens MD 06/18/2020 10:26 PM Central Time ([place] & [place]) See rad report - Re-Assessments/Exams Free Text/Narrative Re-Assessment/Exam: 06/18/20 22:51 Dr. Bradley here to the ER to evaluate the patient. He agreed to accept the patient for inpatient admission. Departure - Departure Time of Disposition: 22:52 Disposition: Admitted As Inpatient 65 Condition: Fair Clinical Impression: Pneumonia Qualifiers: Pneumonia type: due to unspecified organism Laterality: right Lung location: lower lobe of lung Qualified Code(s): J18.9 - Pneumonia, unspecified organism - Discharge Information *PRESCRIPTION DRUG MONITORING PROGRAM REVIEWED*: No *COPY OF PRESCRIPTION DRUG MONITORING REPORT IN PATIENT SERGEI: No Forms: ED Department Discharge Sepsis Event Note (ED) - Focused Exam Vital Signs: Vital Signs Temp Pulse Resp BP Pulse Ox 06/18/20 21:41 97.4 F 109 H 22 H 109/82 96 - My Orders Last 24 Hours: My Active Orders 06/18/20 21:24 UA RFX NANCY AND CULT IF INDIC [URIN] Stat 06/18/20 21:25 EKG Documentation Completion [RC] STAT CULTURE BLOOD [BC] Stat Blood Culture x2 Reflex Set [OM.PC] Stat 06/18/20 21:35 CULTURE BLOOD [BC] Stat 06/18/20 22:37 Admission Diagnosis [ADT] Stat Patient Status [ADT] Routine 06/18/20 22:38 cefTRIAXone [Rocephin] 1 gm Sodium Chloride 0.9% [Normal Saline] 50 ml IV ONETIME - Assessment/Plan Last 24 Hours: My Active Orders 06/18/20 21:24 UA RFX NANCY AND CULT IF INDIC [URIN] Stat 06/18/20 21:25 EKG Documentation Completion [RC] STAT CULTURE BLOOD [BC] Stat Blood Culture x2 Reflex Set [OM.PC] Stat 06/18/20 21:35 CULTURE BLOOD [BC] Stat 06/18/20 22:37 Admission Diagnosis [ADT] Stat Patient Status [ADT] Routine 06/18/20 22:38 cefTRIAXone [Rocephin] 1 gm Sodium Chloride 0.9% [Normal Saline] 50 ml IV ONETIME
[2020-06-18 22:06] LABS: ANION GAP 12.2 mEq/L (7-13); CHLORIDE,CL 100 mmol/L (98-107); SODIUM,NA 139 mmol/L (136-145)
--- NOTE | 2020-06-18 22:27 | CR ---
PROCEDURE INFORMATION: Exam: XR Chest, 1 View Exam date and time: 06/18/2020 10:12 PM Age: 70 years old Clinical indication: Right-sided chest pain TECHNIQUE: Imaging protocol: XR of the chest Views: 1 view. COMPARISON: CR Chest 2V 01/28/2019 8:06 AM FINDINGS: Lungs: There is now mild vascular congestion Pleural space: Unremarkable. No pleural effusion. No pneumothorax. Heart/Mediastinum: There is cardiomegaly Bones/joints: Unremarkable. IMPRESSION: Cardiomegaly with mild vascular congestion
[2020-06-18] MEDS ORDERED: cefTRIAXone 1 GM in Sodium Chloride 0.9% 50 ML IV ONE (22:38)
[2020-06-18] MEDS ORDERED: Docusate Sodium 100 MG Cap PO PRN (23:14)
[2020-06-18] MEDS ORDERED: Acetaminophen/oxyCODONE 325-5 MG Tab PO PRN (23:14)
[2020-06-18] MEDS ORDERED: Acetaminophen 325 MG Tab PO PRN (23:14)
[2020-06-18] MEDS ORDERED: Ondansetron 4 MG Tab.DIS PO PRN (23:14)
[2020-06-18] MEDS ORDERED: Sodium Chloride 0.9% 1,000 ML IV SCH (23:15)
[2020-06-18] MEDS ORDERED: MICONAZOLE NITRATE TOP PRN (23:18)
[2020-06-18] MEDS ORDERED: Polyethylene Glycol 3350 Powder 17 GM Packet PO PRN (23:18)
[2020-06-18] MEDS ORDERED: Warfarin 5 MG Tab PO SCH (23:30)
[2020-06-19] MEDS: Azithromycin 500 MG in Sodium Chloride 0.9% 250 ML IV SCH ×2 (00:25→23:23)
--- NOTE | 2020-06-19 01:55 | HP ---
CHIEF COMPLAINT: Right-sided chest pain with shortness of breath. HISTORY OF PRESENT ILLNESS: The patient is a 70-year-old gentleman who was admitted through the emergency room because the patient was complaining of shortness of breath with right-sided chest pain. States that it started yesterday when he noticed that he was a little bit short of breath and today he also had some chills. He denies any syncope, orthopnea, PND, worsening of pedal edema, abdominal pain, nor any other associated symptoms. Lab workup in the emergency room showed WBC is 18.6 with left shift. Chest x-ray showed some congestion in the right hilar area. The patient was then admitted for pneumonia. PAST MEDICAL HISTORY: Remarkable for atrial fibrillation. He is on anticoagulation therapy. History of prostate cancer, urinary retention, urethral stricture, obstructive sleep apnea, hypertension, obesity. FAMILY HISTORY: Noncontributory. SOCIAL HISTORY: The patient is a . Nonsmoker. Nonalcohol drinker. REVIEW OF SYSTEMS: As in HPI. The rest of the review of systems is negative. ALLERGIES: No known drug allergies. HOME MEDICATIONS: Multivitamins, Timoptic eye drops, diltiazem, Lasix, docusate, cyclobenzaprine, hydrocodone, Zoloft, warfarin, allopurinol, MiraLAX. PHYSICAL EXAMINATION: General: The patient is alert and oriented, not in any acute respiratory distress. Vital Signs: Blood pressure is 109/82, pulse of 109, respirations 22, temperature of 97.4, pulse oximeter is 96% on room air. HEENT: Normocephalic. There are pink palpebral conjunctivae. Sclerae anicteric. No JVD. No lymphadenopathy. Heart: Regular. Ventricular response slightly elevated. No rubs. No gallops. Lungs: Remarkable for diminished breath sounds in both bases with faint crackles. No wheezing. Abdomen: Obese, soft, nontender. Bowel sounds positive. Extremities: Remarkable for the lymphedema bilaterally. There are no signs of cellulitis. No calf tenderness. LABORATORY WORKUP: CBC: WBC is 18.6, hemoglobin is 16.6, hematocrit is 50.9, platelets are 186. D-dimer is 121, which is within normal limits. Comp panel: Creatinine is 1.36, glucose is 123. The rest of the panel unremarkable. Troponin is less than 0.017. C-reactive protein is 5.1. BNP is 99. Chest x-ray: There is cardiomegaly with mild vascular congestion. ADMITTING DIAGNOSES: 1. Pneumonitis. 2. Atrial fibrillation. 3. Hypertension. 4. History of urethral stricture with chronic indwelling Fuller catheter. 5. Obesity. TREATMENT PLAN: The patient is going to be admitted to acute care, General Medicine floor. He will be empirically started on IV antibiotics and he will resume on his home medication and the rest of the management as necessary. Blood cultures were also ordered, and the patient is a full code. [facility] /[id number]
[2020-06-19] MEDS: Albuterol 0.083% 2.5 MG/3 ML Neb Soln NEB SCH ×4 (07:57→20:43)
[2020-06-19] MEDS ORDERED: Timolol Maleate 0.5% Ophth Soln 5 ML Bottle EYEBOTH ONE (08:40)
[2020-06-19] MEDS: Allopurinol 300 MG Tab PO SCH (08:56)
[2020-06-19] MEDS: Sertraline 50 MG Tab PO SCH (08:56)
[2020-06-19] MEDS: Furosemide 20 MG Tab PO SCH ×2 (08:56→18:30)
[2020-06-19] MEDS: Timolol Maleate 0.5% Ophth Soln 5 ML Bottle EYEBOTH SCH ×2 (08:56→20:40)
[2020-06-19] MEDS: Latanoprost 0.005% Ophth Soln 2.5 ML Bottle EYEBOTH SCH ×3 (08:57→21:39)
[2020-06-19] MEDS: Nystatin Crm 15 GM Tube TOP SCH ×3 (09:07→20:37)
--- NOTE | 2020-06-19 10:22 | PN ---
DATE: 06/19/2020 SUBJECTIVE: The patient had a good night sleep and he feels slightly better this morning, and he denies any chest pain or shortness of breath. The patient's urinalysis came back abnormal and it showed positive nitrite with 75 to 100 wbc and 5 to 10 rbc. Cultures were also sent. The patient otherwise denies any other ongoing complaints. OBJECTIVE: Vital Signs: Blood pressure is 126/66, pulse of 98, respirations 22, saturation is 92% on 1.5 L per nasal cannula. Heart: Irregular. Ventricular response within normal limits. Lungs: Equal bilaterally. No significant crackles. No wheezing. Abdomen: Obese, soft, nontender. Extremities: Remarkable for the lymphedema bilaterally. MEDICATIONS: Reviewed. PLAN: We will continue with his present management and continue with IV antibiotics. [facility] /[id number]
[2020-06-19] MEDS: Diltiazem 180 MG Cap.CD PO SCH (17:34)
[2020-06-19] MEDS: Metoprolol Succinate 50 MG Tab.ER PO SCH (20:41)
[2020-06-19] MEDS ORDERED: Warfarin 5 MG Tab PO ONE ×2 (20:53→21:15)
[2020-06-19] MEDS: cefTRIAXone 1 GM in Sodium Chloride 0.9% 50 ML IV SCH (21:40)
[2020-06-20 06:38] LABS: ANION GAP 9.1 mEq/L (7-13); CHLORIDE,CL 105 mmol/L (98-107); SODIUM,NA 141 mmol/L (136-145)
[2020-06-20] MEDS: Albuterol 0.083% 2.5 MG/3 ML Neb Soln NEB SCH ×4 (07:41→21:28)
[2020-06-20] MEDS: Sertraline 50 MG Tab PO SCH (08:18)
[2020-06-20] MEDS: Furosemide 20 MG Tab PO SCH ×2 (08:18→18:05)
[2020-06-20] MEDS: Diltiazem 180 MG Cap.CD PO SCH (08:19)
[2020-06-20] MEDS: Allopurinol 300 MG Tab PO SCH (08:19)
[2020-06-20] MEDS: Nystatin Crm 15 GM Tube TOP SCH ×3 (08:22→21:29)
[2020-06-20] MEDS: Timolol Maleate 0.5% Ophth Soln 5 ML Bottle EYEBOTH SCH ×2 (08:22→21:26)
--- NOTE | 2020-06-20 08:55 | PCM.PN ---
- General Info Date of Service: 06/20/20 Admission Dx/Problem (Free Text): UTI versus pneumonia Subjective Update: Patient admitted for shortness of breath, fever and chills. Was found to have UTI versus pneumonia. He was seen today and examined. Chart reviewed. He is doing well. Shortness of breath improved. He denies fever or chills. Patient diuresing well No new complaint. Functional Status: Reports: Pain Controlled - Review of Systems General: Reports: No Symptoms HEENT: Reports: No Symptoms Pulmonary: Reports: No Symptoms Cardiovascular: Reports: No Symptoms Gastrointestinal: Reports: No Symptoms Genitourinary: Reports: No Symptoms Musculoskeletal: Reports: No Symptoms Skin: Reports: No Symptoms Neurological: Reports: No Symptoms Psychiatric: Reports: No Symptoms - Patient Data Vitals - Most Recent: Last Vital Signs Temp 97.4 F 06/19/20 20:05 Pulse 95 06/20/20 07:44 Resp 16 06/19/20 20:05 BP 118/63 06/19/20 20:41 Pulse Ox 95 06/20/20 07:44 Weight - Most Recent: 354 lb 12.8 oz I&O - Last 24 Hours: Intake & Output 06/19/20 06/20/20 06/20/20 22:59 06:59 14:59 Intake Total 830 550 Output Total 600 2150 Balance 230 -1600 Lab Results Last 24 Hours: Laboratory Results - last 24 hr 06/19/20 06/20/20 06/20/20 Range/Units 21:15 06:15 06:15 WBC 7.9 (5.0-10.0) 10^3/uL RBC 4.87 (4.6-6.2) 10^6/uL Hgb 13.8 L D (14.0-18.0) g/dL Hct 43.4 (40.0-54.0) % MCV 89.1 (80-100) fL MCH 28.3 (27.0-34.0) pg MCHC 31.8 L (33.0-35.0) g/dL Plt Count 138 L (150-450) 10^3/uL Neut % (Auto) 67.0 (42.2-75.2) % Lymph % (Auto) 17.9 L (20.5-50.1) % [place] % (Auto) 13.6 H (2-8) % Eos % (Auto) 1.1 (1.0-3.0) % Baso % (Auto) 0.4 (0.0-1.0) % PT 18.5 H (9.0-12.0) SEC INR 2.0 H (0.9-1.2) Sodium 141 (136-145) mmol/L Potassium 4.1 (3.5-5.1) mmol/L Chloride 105 (98-107) mmol/L Carbon Dioxide 31 (21-32) mmol/L Anion Gap 9.1 (7-13) mEq/L BUN 15 (7-18) mg/dL Creatinine 1.19 (0.70-1.30) mg/dL Est Cr Clr Drug Dosing 62.49 mL/min Estimated GFR (MDRD) > 60 Glucose 94 (74-99) mg/dL Calcium 8.2 L (8.5-10.1) mg/dL Mt Results Last 24 Hours: Microbiology 06/19/20 02:30 Urine Culture - Preliminary Urine, Fuller Cath (Indwelling) 06/18/20 21:35 Aerobic Blood Culture - Preliminary Blood - Venous Anaerobic Blood Culture - Preliminary 06/18/20 22:37 Aerobic Blood Culture - Preliminary Blood - Venous - Lab Draw NO GROWTH AFTER 1 DAY Anaerobic Blood Culture - Preliminary NO GROWTH AFTER 1 DAY Med Orders - Current: Current Medications Acetaminophen (Tylenol) 650 mg PO Q4H PRN PRN Reason: Pain (Mild 1-3)/fever Albuterol (Proventil Neb Soln) 2.5 mg NEB QIDRT [facility] Last Admin: 06/20/20 07:41 Dose: 2.5 mg Documented by: Allopurinol (Zyloprim) 300 mg PO DAILY [facility] Last Admin: 06/20/20 08:19 Dose: 300 mg Documented by: Diltiazem HCl (Cardizem Cd) 360 mg PO DAILY [facility] Last Admin: 06/20/20 08:19 Dose: 360 mg Documented by: Docusate Sodium (Colace) 100 mg PO BID PRN PRN Reason: Constipation Last Admin: 06/19/20 21:22 Dose: 100 mg Documented by: Furosemide (Lasix) 40 mg PO BIDMEALS [facility] Last Admin: 06/20/20 08:18 Dose: 40 mg Documented by: Azithromycin 500 mg/ Sodium (Chloride) 250 mls @ 250 mls/hr IV Q24H [facility] Last Admin: 06/19/20 23:23 Dose: 250 mls/hr Documented by: Ceftriaxone Sodium 1 gm/ (Sodium Chloride) 50 mls @ 100 mls/hr IV Q24H [facility] Last Admin: 06/19/20 21:40 Dose: 100 mls/hr Documented by: Latanoprost (Xalatan 0.005% Ophth Soln) 0 ml EYEBOTH BEDTIME [facility] Last Admin: 06/19/20 21:39 Dose: 1 drop Documented by: Metoprolol Succinate (Toprol Xl) 100 mg PO BEDTIME [facility] Last Admin: 06/19/20 20:41 Dose: 100 mg Documented by: Nystatin (Nystatin Crm) 0 gm TOP TID [facility] Last Admin: 06/20/20 08:22 Dose: 1 applic Documented by: Ondansetron HCl (Zofran Odt) 4 mg PO Q4H PRN PRN Reason: nausea, able to take PO Oxycodone/Acetaminophen (Percocet 325-5 Mg) 1 tab PO Q4H PRN PRN Reason: Pain (moderate 4-6) Last Admin: 06/19/20 00:28 Dose: 1 tab Documented by: Polyethylene Glycol (Miralax) 17 gm PO ASDIRECTED PRN PRN Reason: Constipation Sertraline HCl (Zoloft) 50 mg PO DAILY [facility] Last Admin: 06/20/20 08:18 Dose: 50 mg Documented by: Timolol Maleate (Timoptic 0.5% Ophth Soln) 0 ml EYEBOTH BID [facility] Last Admin: 06/20/20 08:22 Dose: 2 drop Documented by: Discontinued Medications Ceftriaxone Sodium 1 gm/ (Sodium Chloride) 50 mls @ 100 mls/hr IV ONETIME ONE Stop: 06/18/20 23:07 Last Admin: 06/18/20 22:50 Dose: 100 mls/hr Documented by: Sodium Chloride (Normal Saline) 1,000 mls @ 75 mls/hr IV ASDIRECTED [facility] Last Admin: 06/19/20 00:08 Dose: 75 mls/hr Documented by: Latanoprost (Xalatan 0.005% Ophth Soln) 0 ml EYEBOTH DAILY [facility] Last Admin: 06/19/20 09:03 Dose: Not Given Documented by: Non-Formulary Medication (Miconazole Nitrate [Miconazorb Af]) 1 applic TOP BID PRN PRN Reason: Other Warfarin Sodium (Coumadin) 5 mg PO ASDIRECTED [facility] Warfarin Sodium (Pharmacy To Dose - Warfarin) 1 dose .XX ASDIRECTED [facility] Warfarin Sodium (Coumadin) 5 mg PO ONETIME ONE Stop: 06/19/20 20:54 Last Admin: 06/19/20 21:20 Dose: 5 mg Documented by: Warfarin Sodium (Coumadin) 5 mg PO ONETIME ONE Stop: 06/19/20 21:16 Last Admin: 06/19/20 21:23 Dose: 5 mg Documented by: - Exam Quality Assessment: Supplemental Oxygen General: Alert, Oriented HEENT: Pupils Equal, Pupils Reactive, EOMI, Mucous Membr. Moist/Gleason Neck: Supple Lungs: Clear to Auscultation, Normal Respiratory Effort Cardiovascular: Regular Rate, Regular Rhythm GI/Abdominal Exam: Normal Bowel Sounds, Soft, Non-Tender, No Organomegaly, No Distention, No Abnormal Bruit, No Mass, Pelvis Stable (Male) Exam: No Hernia, Normal Inspection, Normal Prostate, Circumcised Back Exam: Normal Inspection, Full Range of Motion Extremities: Normal Inspection, Normal Range of Motion, Non-Tender, No Pedal Edema, Normal Capillary Refill Skin: Warm, Dry, Intact Wound/Incisions: Healing Well Neurological: No New Focal Deficit Psy/Mental Status: Alert, Normal Affect, Normal Mood Sepsis Event Note - Evaluation Sepsis Screening Result: Sepsis Risk - Focused Exam Vital Signs: Vital Signs Pulse Pulse Ox 06/20/20 07:44 95 95 - Problem List Review Problem List Initiated/Reviewed/Updated: Yes - My Orders Last 24 Hours: My Active Orders 06/19/20 21:15 Latanoprost [Xalatan 0.005% Ophth Soln] 0 ml EYEBOTH BEDTIME - Plan Plan:: #Pneumonia #UTI Plan -Continue current antibiotics -Continue physical therapy and Occupational Therapy
[2020-06-20] MEDS ORDERED: Warfarin 5 MG Tab PO ONE (14:00)
[2020-06-20] MEDS: Metoprolol Succinate 50 MG Tab.ER PO SCH (21:25)
[2020-06-20] MEDS: Latanoprost 0.005% Ophth Soln 2.5 ML Bottle EYEBOTH SCH (21:28)
[2020-06-20] MEDS: cefTRIAXone 1 GM in Sodium Chloride 0.9% 50 ML IV SCH (23:15)
[2020-06-20] MEDS: Azithromycin 500 MG in Sodium Chloride 0.9% 250 ML IV SCH (23:46)
[2020-06-21] MEDS: Albuterol 0.083% 2.5 MG/3 ML Neb Soln NEB SCH ×2 (08:02→11:26)
[2020-06-21] MEDS: Furosemide 20 MG Tab PO SCH (08:38)
[2020-06-21] MEDS: Allopurinol 300 MG Tab PO SCH (08:38)
[2020-06-21] MEDS: Diltiazem 180 MG Cap.CD PO SCH (08:38)
[2020-06-21] MEDS: Sertraline 50 MG Tab PO SCH (08:38)
[2020-06-21] MEDS: Nystatin Crm 15 GM Tube TOP SCH ×2 (08:39→13:31)
[2020-06-21] MEDS: Timolol Maleate 0.5% Ophth Soln 5 ML Bottle EYEBOTH SCH (08:40)
[2020-06-21 12:42] VITALS: BP 128/84; PULSE 71
[2020-06-21] MEDS ORDERED: Levofloxacin 500 MG Tab PO SCH (12:45)
--- NOTE | 2020-06-21 13:03 | PCM.DCSUM1 ---
Discharge Summary - Hospital Course Free Text/Narrative:: Patient admitted for shortness of breath, fever and chills. Was found to have UTI versus pneumonia. He was started on empiric antibiotics. He also received IV Lasix. Symptoms improved. Blood culture on admission was positive for staph epi 1 set out of 2. This is likely contamination. Repeat blood cultures were sent. Patient remained clinically stable. No fever, no chills. He has been discharged home on oral antibiotics with plan to follow-up with PCP. Patient has appointment tomorrow with urology for suprapubic catheter change. Diagnosis: Stroke: No - Discharge Data Discharge Date: 06/21/20 Discharge Disposition: Home, Self-Care 01 Condition: Fair - Referral to Home Health Primary Care Physician: PCP None - Patient Summary/Data Consults: Consultations 06/19/20 08:11 OT Evaluation and Treatment [CONS] Routine - Discharge Plan *PRESCRIPTION DRUG MONITORING PROGRAM REVIEWED*: No *COPY OF PRESCRIPTION DRUG MONITORING REPORT IN PATIENT SERGEI: No Prescriptions/Med Rec: levoFLOXacin [Levaquin] 500 mg PO Q24H #5 tablet Home Medications: Home Meds Metoprolol Succinate [Toprol XL] 100 mg PO BEDTIME 10/29/14 [History] Acetaminophen [Tylenol] 650 mg PO ASDIRECTED PRN 06/11/16 [History] Calcium Carbonate/Vitamin D3 [Calcium 600 + Vit D Tablet] 2 tab PO ASDIRECTED 06/11/16 [History] Latanoprost [Xalatan 0.005% Ophth Soln] 1 drop EYEBOTH DAILY 06/11/16 [History] Multivitamin [Multivitamins] 1 tab PO DAILY 06/11/16 [History] Timolol Maleate [Timoptic 0.5% Ophth Soln] 1 drop EYEBOTH BID 06/11/16 [History] dilTIAZem HCL [Cartia Xt] 360 mg PO DAILY 06/11/16 [History] Betamethasone/Propylene Glyc [Diprolene 0.05%] 1 applic TOP ASDIRECTED 03/11/17 [History] Furosemide 40 mg PO BID 03/11/17 [History] Miconazole Nitrate [Miconazorb AF] 1 applic TOP BID PRN 03/11/17 [History] Docusate Sodium 100 mg PO DAILY 11/22/18 [History] Cyclobenzaprine [Flexeril] 5 mg PO Q8HR PRN 10/31/19 [History] Hydrocodone/Acetaminophen [[place] 5-325 Tablet] 5 - 325 mg PO Q8H PRN 10/31/19 [History] Sertraline [Zoloft] 50 mg PO DAILY 10/31/19 [History] Warfarin Sodium [Jantoven] 5 mg PO ASDIRECTED 10/31/19 [History] allopurinoL [Zyloprim] 300 mg PO DAILY 10/31/19 [History] polyethylene glycoL 3350 [MiraLAX] 1 packet PO ASDIRECTED PRN 10/31/19 [History] levoFLOXacin [Levaquin] 500 mg PO Q24H #5 tablet 06/21/20 [Rx] Oxygen Therapy Mode: Room Air Forms: ED Department Discharge Referrals: Keven Bradley MD [Physician] - - Discharge Summary/Plan Comment DC Time >30 min.: Yes - General Info Date of Service: 06/21/20 Admission Dx/Problem (Free Text: UTI versus pneumonia Subjective Update: Patient is doing okay. No fever, chills. No nausea vomiting. Vitals stable. Functional Status: Reports: Pain Controlled - Review of Systems General: Reports: No Symptoms HEENT: Reports: No Symptoms Pulmonary: Reports: No Symptoms Cardiovascular: Reports: No Symptoms Gastrointestinal: Reports: No Symptoms Genitourinary: Reports: No Symptoms Musculoskeletal: Reports: No Symptoms Skin: Reports: No Symptoms Neurological: Reports: No Symptoms Psychiatric: Reports: No Symptoms - Patient Data Vitals - Most Recent: Last Vital Signs Temp 97.0 F 06/21/20 12:41 Pulse 71 06/21/20 12:41 Resp 20 06/21/20 12:41 BP 128/84 06/21/20 12:41 Pulse Ox 98 06/21/20 12:41 Weight - Most Recent: 354 lb 12.8 oz I&O - Last 24 hours: Intake & Output 06/20/20 06/21/20 06/21/20 22:59 06:59 14:59 Intake Total 120 715 250 Output Total 1750 750 700 Balance -7264 -43 -993 Lab Results - Last 24 hrs: Laboratory Results - last 24 hr 06/21/20 Range/Units 05:55 PT 16.5 H (9.0-12.0) SEC INR 1.8 H (0.9-1.2) NANCY Results - Last 24 hrs: Microbiology 06/18/20 22:37 Aerobic Blood Culture - Preliminary Blood - Venous - Lab Draw Anaerobic Blood Culture - Preliminary NO GROWTH AFTER 2 DAYS 06/18/20 21:35 Aerobic Blood Culture - Final Blood - Venous Staphylococcus Epidermidis Anaerobic Blood Culture - Final 06/19/20 02:30 Urine Culture - Preliminary Urine, Fuller Cath (Indwelling) Enterococcus Faecalis Med Orders - Current: Current Medications Acetaminophen (Tylenol) 650 mg PO Q4H PRN PRN Reason: Pain (Mild 1-3)/fever Albuterol (Proventil Neb Soln) 2.5 mg NEB QIDRT [facility] Last Admin: 06/21/20 11:26 Dose: Not Given Documented by: Allopurinol (Zyloprim) 300 mg PO DAILY [facility] Last Admin: 06/21/20 08:38 Dose: 300 mg Documented by: Diltiazem HCl (Cardizem Cd) 360 mg PO DAILY [facility] Last Admin: 06/21/20 08:38 Dose: 360 mg Documented by: Docusate Sodium (Colace) 100 mg PO BID PRN PRN Reason: Constipation Last Admin: 06/19/20 21:22 Dose: 100 mg Documented by: Furosemide (Lasix) 40 mg PO BIDMEALS [facility] Last Admin: 06/21/20 08:38 Dose: 40 mg Documented by: Latanoprost (Xalatan 0.005% Ophth Soln) 0 ml EYEBOTH BEDTIME [facility] Last Admin: 06/20/20 21:28 Dose: 1 drop Documented by: Levofloxacin (Levaquin) 500 mg PO Q24H [facility] Metoprolol Succinate (Toprol Xl) 100 mg PO BEDTIME [facility] Last Admin: 06/20/20 21:25 Dose: 100 mg Documented by: Nystatin (Nystatin Crm) 0 gm TOP TID [facility] Last Admin: 06/21/20 08:39 Dose: 1 applic Documented by: Ondansetron HCl (Zofran Odt) 4 mg PO Q4H PRN PRN Reason: nausea, able to take PO Oxycodone/Acetaminophen (Percocet 325-5 Mg) 1 tab PO Q4H PRN PRN Reason: Pain (moderate 4-6) Last Admin: 06/19/20 00:28 Dose: 1 tab Documented by: Polyethylene Glycol (Miralax) 17 gm PO ASDIRECTED PRN PRN Reason: Constipation Sertraline HCl (Zoloft) 50 mg PO DAILY [facility] Last Admin: 06/21/20 08:38 Dose: 50 mg Documented by: Timolol Maleate (Timoptic 0.5% Ophth Soln) 0 ml EYEBOTH BID [facility] Last Admin: 06/21/20 08:40 Dose: 1 drop Documented by: Warfarin Sodium (Pharmacy To Dose - Warfarin) 0 dose .XX ASDIRECTED [facility] Warfarin Sodium (Coumadin) 5 mg PO ONETIME ONE Stop: 06/21/20 14:01 Discontinued Medications Ceftriaxone Sodium 1 gm/ (Sodium Chloride) 50 mls @ 100 mls/hr IV ONETIME ONE Stop: 06/18/20 23:07 Last Admin: 06/18/20 22:50 Dose: 100 mls/hr Documented by: Sodium Chloride (Normal Saline) 1,000 mls @ 75 mls/hr IV ASDIRECTED [facility] Last Admin: 06/19/20 00:08 Dose: 75 mls/hr Documented by: Azithromycin 500 mg/ Sodium (Chloride) 250 mls @ 250 mls/hr IV Q24H [facility] Last Admin: 06/20/20 23:46 Dose: 250 mls/hr Documented by: Ceftriaxone Sodium 1 gm/ (Sodium Chloride) 50 mls @ 100 mls/hr IV Q24H [facility] Last Admin: 06/20/20 23:15 Dose: 100 mls/hr Documented by: Latanoprost (Xalatan 0.005% Ophth Soln) 0 ml EYEBOTH DAILY [facility] Last Admin: 06/19/20 09:03 Dose: Not Given Documented by: Levofloxacin (Levaquin) 500 mg PO Q24H [facility] Non-Formulary Medication (Miconazole Nitrate [Miconazorb Af]) 1 applic TOP BID PRN PRN Reason: Other Timolol Maleate (Timoptic 0.5% Ophth Soln) 5 ml EYEBOTH .STK-MED ONE Stop: 06/19/20 08:41 Warfarin Sodium (Coumadin) 5 mg PO ASDIRECTED [facility] Warfarin Sodium (Pharmacy To Dose - Warfarin) 1 dose .XX ASDIRECTED [facility] Warfarin Sodium (Coumadin) 5 mg PO ONETIME ONE Stop: 06/19/20 20:54 Last Admin: 06/19/20 21:20 Dose: 5 mg Documented by: Warfarin Sodium (Coumadin) 5 mg PO ONETIME ONE Stop: 06/19/20 21:16 Last Admin: 06/19/20 21:23 Dose: 5 mg Documented by: Warfarin Sodium (Coumadin) 5 mg PO ONETIME ONE Stop: 06/20/20 14:01 Last Admin: 06/20/20 13:01 Dose: 5 mg Documented by: - Exam Quality Assessment: Reports: DVT Prophylaxis General: Reports: Alert, Oriented HEENT: Reports: Pupils Equal, Pupils Reactive, EOMI, Mucous Membr. Moist/[place] Neck: Reports: Supple Lungs: Reports: Clear to Auscultation, Normal Respiratory Effort Cardiovascular: Reports: Regular Rate, Regular Rhythm GI/Abdominal Exam: Normal Bowel Sounds, Soft, Non-Tender, No Organomegaly, No D istention, No Abnormal Bruit, No Mass, Pelvis Stable (Male) Exam: No Hernia, Normal Inspection, Normal Prostate, Circumcised Rectal (Males) Exam: Normal Exam, Normal Rectal Tone, Prostate Normal Back Exam: Reports: Normal Inspection, Full Range of Motion Extremities: Normal Inspection, Normal Range of Motion, Non-Tender, No Pedal Edema, Normal Capillary Refill Skin: Reports: Warm, Dry, Intact Wound/Incisions: Reports: Healing Well Neurological: Reports: No New Focal Deficit Psy/Mental Status: Reports: Alert, Normal Affect, Normal Mood
[2020-06-21] MEDS ORDERED: Albuterol 0.083% 2.5 MG/3 ML Neb Soln NEB ONE (13:14)
[2020-06-21] MEDS ORDERED: Warfarin 5 MG Tab PO ONE (14:00)
[2020-06-22] MEDS ORDERED: Levofloxacin 500 MG Tab PO SCH (09:00)
== END 2020-06-21 14:00 | disposition home or self-care (01) | DRG 698 ==
LOC: DL.ED 21:20 → DL.MS 22:37
PROVIDERS: ADMIT Internal Medicine; ATTEND Student in an Organized Health Care Education/Training Program
DX: T83.511A Infection and inflammatory reaction due to indwelling urethral catheter, initial encounter (principal); H40.9 Unspecified glaucoma; J18.9 Pneumonia, unspecified organism; Z68.42 Body mass index [BMI] 45.0-49.9, adult; G47.30 Sleep apnea, unspecified; N39.0 Urinary tract infection, site not specified; I48.91 Unspecified atrial fibrillation; M19.90 Unspecified osteoarthritis, unspecified site; R33.9 Retention of urine, unspecified; G47.33 Obstructive sleep apnea (adult) (pediatric); Z93.6 Other artificial openings of urinary tract status; I10 Essential (primary) hypertension; E66.9 Obesity, unspecified; Z20.828 Contact with and (suspected) exposure to other viral communicable diseases; Z96.0 Presence of urogenital implants; Z96.652 Presence of left artificial knee joint; Z79.899 Other long term (current) drug therapy; Z79.01 Long term (current) use of anticoagulants; Z85.46 Personal history of malignant neoplasm of prostate; Z86.010 Personal history of colon polyps; Z87.442 Personal history of urinary calculi
CPT/HCPCS: 36415; 71045; 80053; 83605; 83880; 84484; 85025; 85379; 85610; 86140; 87040; 87077; 87088; 87186; 93005; 99285; U0002; 80048; 81001; 87086; 93010; 94640; 99284; A9270-GY; J0456; J0696; J7030; J7050; J7613-GY

== ENCOUNTER 2021-08-21 02:32 | Emergency (ER) | payer MEDICARE, BC ==
[2021-08-21] MEDS ORDERED: Ciprofloxacin 500 MG Tab PO ONE (04:14)
--- NOTE | 2021-08-21 04:19 | EDM.PDOC ---
ED HPI GENERAL MEDICAL PROBLEM - General Chief Complaint: Genitourinary Problem Stated Complaint: CLOGGED CATHETER Time Seen by Provider: 08/21/21 03:00 Source of Information: Reports: Patient History Limitations: Reports: No Limitations - History of Present Illness INITIAL COMMENTS - FREE TEXT/NARRATIVE: ED with c/o catheter plugged tonight, increased sediment and mucus past 2 days, decreased out put this afternoon but still draining. Indwelling catheter secondary to hx prostate cancer. No fever chils or back pain. Urinary bladder spasm. - Related Data Allergies Allergy/AdvReac Type Severity Reaction Status Date / Time No Known Allergies Allergy Verified 08/21/21 03:02 Home Meds: Home Meds Metoprolol Succinate [Toprol XL] 100 mg PO BEDTIME 10/29/14 [History] Acetaminophen [Tylenol] 650 mg PO ASDIRECTED PRN 06/11/16 [History] Calcium Carbonate/Vitamin D3 [Calcium 600 + Vit D Tablet] 2 tab PO ASDIRECTED 06/11/16 [History] Latanoprost [Xalatan 0.005% Ophth Soln] 1 drop EYEBOTH DAILY 06/11/16 [History] Multivitamin [Multivitamins] 1 tab PO DAILY 06/11/16 [History] Timolol Maleate [Timoptic 0.5% Ophth Soln] 1 drop EYEBOTH BID 06/11/16 [History] dilTIAZem HCL [Cartia Xt] 360 mg PO DAILY 06/11/16 [History] Betamethasone/Propylene Glyc [Diprolene 0.05%] 1 applic TOP ASDIRECTED 03/11/17 [History] Furosemide 40 mg PO BID 03/11/17 [History] Miconazole Nitrate [Miconazorb AF] 1 applic TOP BID PRN 03/11/17 [History] Docusate Sodium 100 mg PO DAILY 11/22/18 [History] Cyclobenzaprine [Flexeril] 5 mg PO Q8HR PRN 10/31/19 [History] Hydrocodone/Acetaminophen [[place] 5-325 Tablet] 5 - 325 mg PO Q8H PRN 10/31/19 [History] Sertraline [Zoloft] 50 mg PO DAILY 10/31/19 [History] Warfarin Sodium [Jantoven] 5 mg PO ASDIRECTED 10/31/19 [History] allopurinoL [Zyloprim] 300 mg PO DAILY 10/31/19 [History] polyethylene glycoL 3350 [MiraLAX] 1 packet PO ASDIRECTED PRN 10/31/19 [History] levoFLOXacin [Levaquin] 500 mg PO Q24H #5 tablet 06/21/20 [Rx] Past Medical History HEENT History: Reports: Glaucoma Other HEENT History: cyst roof of mouth Cardiovascular History: Reports: Afib, Hypertension Respiratory History: Reports: Sleep Apnea Gastrointestinal History: Reports: Colon Polyp Genitourinary History: Reports: Prostate Disorder, Renal Calculus, Other (See Below) Other Genitourinary History: BLADDER DIVERTICULUM. URETHRAL STRICTURE. CHRONIC RETENTION OF URINE. SUPRAPUBIC CATHETAR. BLADDER SPASMS Musculoskeletal History: Reports: Arthritis, Other (See Below) Other Musculoskeletal History: DEGENERATIVE DISC DISEASE. BLADDER SPASMS Neurological History: Reports: None Psychiatric History: Reports: None Endocrine/Metabolic History: Reports: Obesity/BMI 30+ Hematologic History: Reports: None Immunologic History: Reports: Other (See Below) Other Immunologic History: HX OF SCARLATINA Oncologic (Cancer) History: Reports: Prostate, Other (See Below) Other Oncologic History: SKIN CA Dermatologic History: Reports: None - Infectious Disease History Infectious Disease History: Reports: Chicken Pox, Measles, Mumps, Other (See Below) Other Infectious Disease History: SCARLETINA - Past Surgical History Head Surgeries/Procedures: Reports: None HEENT Surgical History: Reports: Eye Surgery Other HEENT Surgeries/Procedures: surg opn torn retina Cardiovascular Surgical History: Reports: Other (See Below) Other Cardiovascular Surgeries/Procedures: ANGIOGRAM. ECHO. ELECTROCARDIOGRAM Respiratory Surgical History: Reports: None GI Surgical History: Reports: Appendectomy, Colonoscopy, Hernia Repair/Other, Polypectomy Male Surgical History: Reports: Suprapubic Catheter Placement Other Male Surgeries/Procedures: PROSTATE CA SURG WITH RADIATION. BLADDER NECK DILTATION. CHANGE OF BLADDER TUBE CMPLX. CYSTOSCOPY Endocrine Surgical History: Reports: None Neurological Surgical History: Reports: None Musculoskeletal Surgical History: Reports: Joint Replacement, Other (See Below) Other Musculoskeletal Surgeries/Procedures:: L) KNEE SURG Oncologic Surgical History: Reports: Other (See Below) Other Oncologic Surgeries/Procedures: S/P PROSTRATE CA SURGERY & RADIATION Dermatological Surgical History: Reports: Skin Biopsy Social & Family History - Family History Family Medical History: No Pertinent Family History - Tobacco Use Tobacco Use Status *Q: Current Every Day Tobacco User Years of Tobacco use: 30 Packs/Tins Daily: 0.3 Second Hand Smoke Exposure: No - Caffeine Use Caffeine Use: Reports: Coffee Other Caffeine Use: 3 cups every other day. pop weekly - Recreational Drug Use Recreational Drug Use: No - Living Situation & Occupation Living situation: Reports: Occupation: Employed ED ROS GENERAL - Review of Systems Review Of Systems: Comprehensive ROS is negative, except as noted in HPI. ED EXAM, RENAL/ - Physical Exam Exam: See Below Exam Limited By: No Limitations General Appearance: Alert, Mild Distress, Obese Eye Exam: Bilateral Eye: PERRL Ears: Normal External Exam Nose: Normal Inspection Throat/Mouth: Normal Inspection Head: Atraumatic, Normocephalic Neck: Normal Inspection Respiratory/Chest: No Respiratory Distress, Lungs Clear Cardiovascular: Regular Rate, Rhythm GI/Abdominal: Normal Bowel Sounds, Soft, Other (indwelling suprapubic, no redne ss at os scant leakage of urine around catheter) Extremities: Pedal Edema Neurological: Alert, Oriented, Normal Cognition Psychiatric: Normal Affect Skin Exam: Warm, Dry, Intact Course - Vital Signs Last Recorded V/S: Last Vital Signs Temp 96.6 F L 08/21/21 04:20 Pulse 70 08/21/21 04:20 Resp 18 08/21/21 04:20 BP 112/80 08/21/21 04:20 Pulse Ox 91 L 08/21/21 04:20 - Orders/Labs/Meds Orders: Active Orders 24 hr Category Date Time Status CULTURE URINE [RM] Stat Lab 08/21/21 03:45 Received Labs: Laboratory Tests 08/21/21 Range/Units 03:45 Urine Color Yellow (YELLOW) Urine Appearance Cloudy (CLEAR) Urine pH >= 9.0 (5.0-9.0) Ur Specific [place] 1.010 (1.005-1.030) Urine Protein 100 H (NEGATIVE) Urine Glucose (UA) Negative (NEGATIVE) Urine Ketones Negative (NEGATIVE) Urine Occult Blood Trace-intact H (NEGATIVE) Urine Nitrite Negative (NEGATIVE) Urine Bilirubin Negative (NEGATIVE) Urine Urobilinogen 0.2 (0.2-1.0) mg/dL Ur Leukocyte Esterase Large H (NEGATIVE) Urine RBC 0-5 (0-5) /HPF Urine WBC 5-10 H (0-5/HPF) /HPF Ur Epithelial Cells Few (NOT SEEN) /HPF Triple Phos Crystals Moderate H (NOT SEEN) /HPF Amorphous Sediment Many (NOT SEEN) /HPF Urine Bacteria Many H (0-FEW/HPF) /HPF Meds: Medications Discontinued Medications Generic Name Dose Route Start Last Admin Trade Name Katherine PRN Reason Stop Dose Admin Ciprofloxacin 500 mg 08/21/21 04:14 08/21/21 04:19 Ciprofloxacin 500 Mg Tab PO 08/21/21 04:15 500 mg ONETIME ONE Administration - Re-Assessments/Exams Free Text/Narrative Re-Assessment/Exam: 08/21/21 06:19 Catheter irrigated and draining. patient instructed to follow with PCP this week Departure - Departure Time of Disposition: 04:16 Disposition: Home, Self-Care 01 Condition: Good Clinical Impression: UTI, Urinary tract infectious disease, Fuller catheter detention use - Discharge Information *PRESCRIPTION DRUG MONITORING PROGRAM REVIEWED*: No *COPY OF PRESCRIPTION DRUG MONITORING REPORT IN PATIENT SERGEI: No Instructions: Indwelling Urinary Catheter Care, Adult Referrals: Keven Bradley MD [Primary Care Provider] - Forms: ED Department Discharge Additional Instructions: cipro 500mg one twice daily clinic follow up recheck or Thursday, sooner if catheter is not draining or develop fever and chills, vomiting tylenol 500mg eveyr 4 hours as needed for discomfort Sepsis Event Note (ED) - Focused Exam Vital Signs: Vital Signs Temp Pulse Resp BP Pulse Ox 08/21/21 04:20 96.6 F L 70 18 112/80 91 L 08/21/21 02:55 97 F 123 H 18 109/78 95 - My Orders Last 24 Hours: My Active Orders 08/21/21 03:45 CULTURE URINE [RM] Stat - Assessment/Plan Last 24 Hours: My Active Orders 08/21/21 03:45 CULTURE URINE [RM] Stat
[2021-08-21 04:31] VITALS: BP 112/80; PULSE 70
== END 2021-08-21 04:23 | disposition home or self-care (01) ==
LOC: DL.ED 02:32
DX: T83.511A Infection and inflammatory reaction due to indwelling urethral catheter, initial encounter (principal); N39.0 Urinary tract infection, site not specified; I48.91 Unspecified atrial fibrillation; I10 Essential (primary) hypertension; R60.0 Localized edema; E66.9 Obesity, unspecified; Z68.42 Body mass index [BMI] 45.0-49.9, adult; Z79.899 Other long term (current) drug therapy; Z72.0 Tobacco use; Z79.01 Long term (current) use of anticoagulants
CPT/HCPCS: 81001; 87086; 87088; 87186; 99283; A9270-GY

== ENCOUNTER 2021-11-18 13:33 | Emergency (ER) | payer MEDICARE, BC ==
[2021-11-18 14:36] VITALS: BP 121/77; PULSE 108
[2021-11-18 15:12] LABS: CHLORIDE,CL 100 mmol/L (98-107); SODIUM,NA 139 mmol/L (136-145)
== END 2021-11-18 17:00 | disposition home or self-care (01) ==
LOC: DL.ED 13:33
DX: N39.0 Urinary tract infection, site not specified (principal); I48.91 Unspecified atrial fibrillation; I10 Essential (primary) hypertension; E66.9 Obesity, unspecified; Z68.30 Body mass index [BMI] 30.0-30.9, adult; Z79.899 Other long term (current) drug therapy; Z79.01 Long term (current) use of anticoagulants
CPT/HCPCS: 36415; 71045; 80053; 80307; 81001; 83605; 83735; 84484; 85025; 86140; 87086; 87088; 87186; 93010; 99284-25; 99285

== ENCOUNTER 2022-01-18 10:53 | Emergency (ER) | payer MEDICARE, BC ==
[2022-01-18] MEDS ORDERED: Sodium Chloride 0.9% 10 ML Syringe FLUSH PRN (11:30)
[2022-01-18 11:55] VITALS: BP 133/91; PULSE 89
[2022-01-18 12:14] LABS: ANION GAP 12.1 mEq/L (7-13)
== END 2022-01-18 15:46 | disposition home or self-care (01) ==
LOC: DL.ED 10:53
DX: K25.9 Gastric ulcer, unspecified as acute or chronic, without hemorrhage or perforation (principal); I48.91 Unspecified atrial fibrillation; I10 Essential (primary) hypertension; E66.9 Obesity, unspecified; Z79.01 Long term (current) use of anticoagulants; Z79.899 Other long term (current) drug therapy; Z68.41 Body mass index [BMI] 40.0-44.9, adult
CPT/HCPCS: 36415; 80053; 83605; 85025; 87040; 87077; 87186; 99283; 99284

== ENCOUNTER 2023-07-05 12:53 | Emergency (ER) | payer MEDICARE, BC ==
[2023-07-05 13:47] VITALS: BP 101/75; PULSE 99
== END 2023-07-05 15:33 | disposition home or self-care (01) ==
LOC: DL.ED 12:53
DX: S20.211A Contusion of right front wall of thorax, initial encounter (principal); I10 Essential (primary) hypertension; I48.91 Unspecified atrial fibrillation; E66.9 Obesity, unspecified; Z68.41 Body mass index [BMI] 40.0-44.9, adult; Z79.01 Long term (current) use of anticoagulants; Z79.899 Other long term (current) drug therapy; X50.9XXA Other and unspecified overexertion or strenuous movements or postures, initial encounter
CPT/HCPCS: 71101-RT; 99282; 99285

== ENCOUNTER 2023-11-07 10:40 | Emergency (ER) | payer MEDICARE, BC ==
[2023-11-07 10:40] VITALS: BP 121/72; PULSE 98
[2023-11-07 10:57] LABS: BASOPHILS PERCENT AUTO 0.8 % (0.0-1.0); HEMATOCRIT 43.6 % (40.0-54.0); HEMOGLOBIN 13.7 g/dL (14.0-18.0); LYMPHOCYTES PERCENT AUTO 17.2 % (20.5-50.1); MEAN CORPUSCULAR HEMOGLOBIN 28.3 pg (27.0-34.0); MEAN CORPUSCULAR HGB CONC 31.4 g/dL (33.0-35.0); MEAN CORPUSCULAR VOLUME 90.1 fL (80-100); MONOCYTES PERCENT AUTO 8.6 % (2-8); NEUTROPHILS PERCENT AUTO 71.4 % (42.2-75.2); PLATELET COUNT,PLT 220 10^3/uL (150-450); RED BLOOD CELL COUNT 4.84 10^6/uL (4.6-6.2); WHITE BLOOD CELL COUNT,WBC 7.5 10^3/uL (5.0-10.0)
[2023-11-07 11:17] LABS: INR 2.5 (0.9-1.2); PROTHROMBIN TIME 24.5 SEC (9.0-12.0)
[2023-11-07 11:23] LABS: ALBUMIN 3.2 g/dL (3.4-5.0); ANION GAP 10.1 mEq/L (7-13); BILIRUBIN TOTAL 0.5 mg/dL (0.2-1.0); BUN/CREATININE RATIO 23.8 (No establ ref range); CREATININE 1.01 mg/dL (0.70-1.30); EST CRCL DRUG DOSING (CG) 70.43 mL/min; POTASSIUM,K 4.1 mmol/L (3.5-5.1); PROTEIN TOTAL,TP 7.4 g/dL (6.4-8.2)
[2023-11-07 11:24] LABS: A/G RATIO 0.76
[2023-11-07] MEDS ORDERED: Acetaminophen 325 MG Tab PO ONE (11:47)
== END 2023-11-07 12:00 | disposition home or self-care (01) ==
LOC: DL.ED 10:40
DX: S00.83XA Contusion of other part of head, initial encounter (principal); D68.9 Coagulation defect, unspecified; I10 Essential (primary) hypertension; E66.9 Obesity, unspecified; Z68.42 Body mass index [BMI] 45.0-49.9, adult; Z79.01 Long term (current) use of anticoagulants; W18.30XA Fall on same level, unspecified, initial encounter; Z90.49 Acquired absence of other specified parts of digestive tract
CPT/HCPCS: 36415; 70450; 71045; 72125; 80053; 83605; 85025; 85610; 93005; 93010; 99284; A9270-GY